=== PATIENT | male | born 1965 | race Caucasian/White ===

== ENCOUNTER → 2018-03-06 | Outpatient (CLI) | payer OTHER ==
[~2018-03-06] MED LIST: ADALAT CC30 MG; LOPRESSOR50; XANAX 0.5 MG0.5 MG PO
== END ==
LOC: MRI 06:15
DX: S05.42XA Penetrating wound of orbit with or without foreign body, left eye, initial encounter (principal); X58.XXXA Exposure to other specified factors, initial encounter; Y93.89 Activity, other specified; Y92.89 Other specified places as the place of occurrence of the external cause; Y99.8 Other external cause status

== ENCOUNTER → 2018-04-10 | Outpatient (CLI) | payer OTHER | LOC: MRI 06:55 | DX: M50.221 Other cervical disc displacement at C4-C5 level (principal); M54.12 Radiculopathy, cervical region; M47.892 Other spondylosis, cervical region; M48.02 Spinal stenosis, cervical region; M51.24 Other intervertebral disc displacement, thoracic region ==